=== PATIENT | male | born 2000 | race Caucasian/White ===

== ENCOUNTER 2022-11-20 14:23 | Emergency (ER) | payer OTHER ==
[~2022-11-20] VITALS: Ht 190 cm; Wt 106.0 kg
[2022-11-20 14:33] VITALS: BP 129/84
--- NOTE | 2022-11-20 14:51 | ED Lower Extremity ---
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 Source: patient Exam Limitations: no limitations History of Present Illness Date Seen by Provider: Nov 20, 2022 Time Seen by Provider: 14:49 Initial Comments Patient is a 22-year-old male who presents to ED with left ankle pain. 30 min utes ago he was walking down the stairs missed the last step and rolled his left ankle inwards. Patient had immediate pain and felt a pop. Had immediate swelling within 10 seconds. Pain with walking but is able to ambulate. No history of previous injury. Denies taking thing for pain. Notable swelling on arrival. No obvious bone deformity. Normal active range of motion of the ankle and toes Allergies and Home Medications Allergies Coded Allergies: No Known Drug Allergies (Unverified , 11/20/22) Patient Home Medication List Home Medication List Reviewed: Yes Review of Systems Constitutional: No chills, No diaphoresis EENTM: No hearing loss, No ear pain, No blurred vision Respiratory: No cough, No dyspnea on exertion Cardiovascular: No chest pain Gastrointestinal: No abdominal pain, No diarrhea, No dysphagia, No nausea, No vomiting Genitourinary: No decreased output Musculoskeletal: No back pain; joint pain, joint swelling, muscle pain Skin: No change in color, No change in hair/nails All Other Systems Reviewed Negative Unless Noted: Yes Past Xflmpbe-Icssum-Kmoibs Hx Patient Social History Smoking Status: Never a Smoker Substance use?: No Alcohol Use?: No Physical Exam Vital Signs Vital Signs - First Documented 11/20/22 14:33 Temp 36.7 Pulse 86 Resp 16 B/P (MAP) 129/84 (99) Pulse Ox 97 O2 Delivery Room Air Capillary Refill : Less Than 3 Seconds Height, Weight, BMI Height: '" Weight: lbs. oz. kg; 29.00 BMI Method: General Appearance: WD/WN, no apparent distress HEENT: PERRL/EOMI, normal ENT inspection, TMs normal, pharynx normal Neck: non-tender, full range of motion, supple Cardiovascular: regular rate, rhythm, no edema, no gallop, no JVD Respiratory: chest non-tender, lungs clear, normal breath sounds, no respiratory distress, no accessory muscle use Gastrointestinal: normal bowel sounds, non tender, soft, no organomegaly Back: normal inspection, no CVA tenderness Ankles: left ankle pain (Tenderness to palpate left lateral ankle. 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 Patient rolled his left ankle. Reports inward rotation of his left ankle. Notable swelling and tenderness. Due to mechanism of injury x-ray was ordered to rule out fracture versus ankle sprain. X-ray was negative for acute fracture. Soft tissue swelling. Ice was applied. Refusing thing for pain. Discussed boot versus brace. He suggest a ankle brace that he will get at [facility] or [facility]. Discussed a lace brace. Ian wrap was applied. Ice and elevate at home. Ice for 30 minutes 3-4 times a day for the next 3 days. Brace for support. If continued pain over the next 1 to 2 weeks orthopedic outpatient follow-up. Will discharge with ibuprofen to help with pain and swelling. Avoid any strenuous activity for the next 1 to 2 weeks. Return precaution were discussed Impression Primary Impression: Ankle sprain Disposition: 01 HOME, SELF-CARE Condition: Stable Departure-Patient Inst. Decision time for Depature: 15:17 Referrals: [facility] [place] NO,LOCAL PHYSICIAN (PCP) Primary Care Physician MATT MERA MD Patient Instructions: Ankle Sprain ED Add. Discharge Instructions: Recommend ibuprofen to help with pain and swelling. Ian wrap or laced brace to help with support. Ice and elevate. Orthopedic follow-up in 7 to 14 days if pain progress All discharge instructions reviewed with patient and/or family. Voiced understanding. Scripts Ibuprofen (Ibuprofen) 600 Mg Tablet 600 MG PO Q6H for PAIN, #20 TAB 0 Refills Prov: FARHAN JONES 11/20/22 FARHAN JONES Nov 20, 2022 14:51
--- NOTE | 2022-11-20 15:02 | Diagnostic Imaging Report ---
INDICATION: Left ankle pain. EXAMINATION: AP, oblique and lateral views of the left ankle were obtained. FINDINGS: No fracture or acute bony abnormality is seen. Joint spaces are unremarkable. There is soft tissue swelling laterally. IMPRESSION: Soft tissue swelling laterally. No acute fracture or acute bony abnormality. Dictated by: Dictated on workstation # [id number]
[2022-11-20] MEDS ORDERED: IBUP-1773 PO (15:29)
== END 2022-11-20 15:29 | disposition home or self-care (01) ==
LOC: ER 14:30
DX: S93.402A Sprain of unspecified ligament of left ankle, initial encounter (principal); Z28.310 Unvaccinated for COVID-19; W10.9XXA Fall (on) (from) unspecified stairs and steps, initial encounter; X50.1XXA Overexertion from prolonged static or awkward postures, initial encounter
CPT/HCPCS: 73610